=== PATIENT | male | born 1985 | race Caucasian/White ===

== ENCOUNTER 2021-06-15 09:38 | Day surgery (SDC) | payer OTHER ==
[2021-06-10 16:58] LABS: BASOPHILS % (AUTO) 0.3 % (0-1); EOSINOPHILS # (AUTO) 0.1 X10'3 (0-0.9); EOSINOPHILS % (AUTO) 0.9 % (0-6); LYMPHOCYTES # (AUTO) 2.1 X10'3 (1.1-4.8); LYMPHOCYTES % (AUTO) 31.2 % (21-51); MEAN CORPUSCULAR HEMOGLOBIN 31.2 PG (27.0-31.0); MEAN CORPUSCULAR HGB CONC 34.1 g/dL (33.0-36.5); MEAN CORPUSCULAR VOLUME 91.5 FL (78-98); MEAN PLATELET VOLUME 7.1 FL (7.4-10.4); MONOCYTES # (AUTO) 0.6 X10'3 (0-0.9); MONOCYTES % (AUTO) 9.4 % (2-12); NEUTROPHILS % (AUTO) 58.2 % (42-75); PRE OP HEMATOCRIT 44.8 % (42.0-52.0); PRE OP HEMOGLOBIN 15.3 g/dL (14.0-17.9); PRE OP PLATELET COUNT 245 X10'3 (140-440); RED CELL DISTRIBUTION WIDTH 13.7 % (11.5-14.5)
[2021-06-10 17:05] LABS: PRE OP PROTIME 10.3 SECONDS (9.0-12.0)
[2021-06-10 17:21] LABS: ALBUMIN 4.1 G/DL (3.4-5.0); ALBUMIN/GLOBULIN RATIO 1.1 (1.1-1.5); ALKALINE PHOSPHATASE 83 IU/L (46-116); BLOOD UREA NITROGEN 16 MG/DL (7-18); BUN/CREATININE RATIO 14.5 (5.4-32.0); CHLORIDE 107 MMOL/L (99-107); PRE OP ANION GAP 9 (8-16); PRE OP AST 33 U/L (10-37); PRE OP BILIRUB, TOTAL 0.4 MG/DL (0.0-1.0); PRE OP GLUCOSE 76 MG/DL (70-104); PRE OP POTASSIUM 4.2 MMOL/L (3.4-5.1); PRE OP SODIUM 146 MMOL/L (135-145); TOTAL CARBON DIOXIDE 29.6 MMOL/L (24-32); TOTAL PROTEIN 7.7 G/DL (6.4-8.2); eGFR 76 ML/MIN
[2021-06-10 17:23] LABS: PRE OP ALT 84 U/L (30-65)
[~2021-06-15] VITALS: Ht 175.3 cm; Wt 107.3 kg
[2021-06-15] VITALS (7 sets, daily range): BP systolic 132–147; BP diastolic 83–89
[~2021-06-15 09:38] MED LIST: NO HOME MEDS; cocaine 4% topical solution 4ml bottle ONE; diazepam 5mg tablet PO ONE; famotidine 20mg tablet PO ONE; mupirocin 2% ointment 22GM ONE; oxymetazoline 15 ML nasal spray NS ONE; oxymetazoline 15 ML nasal spray NS PRN; ringers solution, lacted 1,000 ML IV SCH
[2021-06-15] MEDS ORDERED: fentaNYL/PF 50MCG/1 ML 2ML syringe IV PRN ×2 (11:15)
[2021-06-15] MEDS ORDERED: morphine 4 MG/ML inj SYRINge IV PRN (11:15)
[2021-06-15] MEDS ORDERED: morphine 2 MG/ML inj. syringe IV PRN (11:15)
[2021-06-15] MEDS ORDERED: ondansetron/PF 4mg/2ml inj IV PRN (11:15)
[2021-06-15] MEDS ORDERED: labetalol 20mg/4ml (5mg/ml) syringe IV PRN (11:15)
[2021-06-15] MEDS ORDERED: ringers solution, lacted 1,000 ML IV SCH (11:15)
[2021-06-15] MEDS ORDERED: hydrALAZINE 20mg/ml inj. IV PRN (11:15)
[2021-06-15] MEDS ORDERED: FENTANYL CITRATE/PF 50 MCG/1 ML VIAL ONE ×2 (12:15)
[2021-06-15] MEDS ORDERED: midazolam 1 mg/ML 2ml injection ONE (12:15)
[2021-06-15] MEDS ORDERED: propofol inj 20 ML IV ONE (12:16)
[2021-06-15] MEDS ORDERED: LIDOcaine 2% (20mg/ml) 5ml vial ONE (12:16)
[2021-06-15] MEDS ORDERED: neostigmine methylsulfate 1 MG/ML 10ml vial ONE (12:16)
[2021-06-15] MEDS ORDERED: ondansetron/PF 4mg/2ml inj ONE (12:16)
[2021-06-15] MEDS ORDERED: rocuronium 10mg/ml inj IV ONE (12:16)
[2021-06-15] MEDS ORDERED: dexamethasone sod phosphate 4mg/ml inj. ONE (12:16)
[2021-06-15] MEDS ORDERED: glycopyrrolate 0.2mg/ml inj ONE (12:16)
[2021-06-15] MEDS ORDERED: lidocaine 1%/epinephrine 1:100,000 inj. 50ml multi-dose vial IJ ONE (12:58)
--- NOTE | 2021-06-15 13:47 | NUR ---
Received from OR via , accompanied by Anesthesiologist DR GOFF and report given by Anesthesiolgist. AWAKENS TO VOICE. VITALS STABLE. NO BLEEDING NOTED. FRANCISCA PAIN.
[2021-06-15] MEDS ORDERED: oxymetazoline 15 ML nasal spray NS SCH (13:59)
[2021-06-15] MEDS ORDERED: salt irrigation nasal spray 45 ML SPRAY NS PRN (14:00)
--- NOTE | 2021-06-15 14:47 | NUR ---
AWAKE AND ORIENTED. VITALS STABLE. DRESSINGS DI. FRANCISCA PAIN. HOME WITH HIS AT THIS TIME.
== END 2021-06-15 14:47 | disposition home or self-care (01) ==
LOC: PAS 09:38
PROVIDERS: ATTEND Otolaryngology
DX: J34.2 Deviated nasal septum (principal); J34.3 Hypertrophy of nasal turbinates; J35.2 Hypertrophy of adenoids; J34.89 Other specified disorders of nose and nasal sinuses; G47.30 Sleep apnea, unspecified; E66.9 Obesity, unspecified; Z68.34 Body mass index [BMI] 34.0-34.9, adult; Z20.822 Contact with and (suspected) exposure to COVID-19; Z98.890 Other specified postprocedural states; Z86.15 Personal history of latent tuberculosis infection; Z79.899 Other long term (current) drug therapy
CPT/HCPCS: 30140; 30520; 36415; 42831; 80053; 82948; 85025; 85576; 85610; 85730; 87635; A6402; C9250; C9803; J1100; J2250; J2405; J2704; J2710; J3010; J3490; J7030; J7050; J7120; U0003; U0005; Z7506; Z7508; Z7512; A4618; A7000